=== PATIENT | male | born 1960 | race Two or more races ===

== ENCOUNTER 2019-11-06 14:00 | Inpatient (IN) | payer MEDICAID ==
[~2019-11-06] VITALS: Ht 193 cm; Wt 117.0 kg
[2019-11-06] MEDS ORDERED: SUCR1TAB28 PO (20:07)
[2019-11-06] MEDS ORDERED: LIB25 PO (20:07)
[2019-11-06] MEDS ORDERED: THIA100T80 PO (20:07)
[2019-11-06] MEDS ORDERED: FOLI-130 PO (20:07)
[2019-11-06] MEDS ORDERED: MULT1CAP32 PO (20:07)
[2019-11-06] MEDS ORDERED: PANT-31 PO (20:07)
[2019-11-07] VITALS (11 sets, daily range): BP systolic 110–151; BP diastolic 60–92
[2019-11-07] MEDS: LORazepam 2 MG TABLET PO PRN ×2 (05:12→10:01)
[2019-11-07] MEDS ORDERED: PNEUMOCOCCAL VACCINE POLYVALENT 0.5 ML VIAL [PPSV23] IM ONE (07:30)
[2019-11-07] MEDS ORDERED: PETROLATUM,WHITE 28 GM JELLY TP PRN (08:00)
[2019-11-07] MEDS ORDERED: DOCUSATE SODIUM 100 MG CAPSULE PO PRN (08:00)
[2019-11-07] MEDS ORDERED: MAG HYDROX/AL HYDROX/SIMETH ES 30 ML SUSPENSION UDCUP PO PRN (08:00)
[2019-11-07] MEDS ORDERED: ALBUTEROL SULFATE HFA 90 MCG/PUFF 8 GM INHALER IH PRN (08:00)
[2019-11-07] MEDS ORDERED: LOPERAMIDE HCL 2 MG CAPSULE PO PRN (08:00)
[2019-11-07] MEDS ORDERED: GuaiFENesin/D-METHORPHAN [SUGAR-FREE] 200-20MG/10 ML SYRUP UDCUP PO PRN (08:00)
[2019-11-07] MEDS ORDERED: MAGNESIUM HYDROXIDE SUSPENSION 30 ML UDCUP PO PRN (08:00)
[2019-11-07] MEDS ORDERED: ONDANSETRON HCL 4 MG TABLET PO PRN (08:00)
[2019-11-07] MEDS ORDERED: IBUPROFEN 400 MG TABLET PO PRN (08:00)
[2019-11-07] MEDS ORDERED: CloNIDine HCL 0.1 MG TABLET PO PRN (08:00)
[2019-11-07] MEDS ORDERED: ACETAMINOPHEN 325 MG TABLET PO PRN (08:00)
[2019-11-07] MEDS ORDERED: CYANOCOBALAMIN 1,000 MCG/ML VIAL IM ONE (14:15)
[2019-11-07] MEDS ORDERED: ChlordiazePOXIDE HCL 25 MG CAPSULE PO PRN (14:15)
[2019-11-07] MEDS: MULTIVITAMINS WITH MINERALS, THERAPEUTIC TABLET PO SCH (15:17)
[2019-11-07] MEDS: FOLIC ACID 1 MG TABLET PO SCH (15:17)
[2019-11-07] MEDS: ARIPiprazole 5 MG TABLET PO SCH (15:17)
[2019-11-07] MEDS: THIAMINE 100 MG TABLET PO SCH (16:30)
[2019-11-08] VITALS (7 sets, daily range): BP systolic 115–133; BP diastolic 68–92
[2019-11-08] MEDS: QUEtiapine FUMARATE 100 MG TABLET PO PRN (06:16)
[2019-11-08] MEDS ORDERED: ChlordiazePOXIDE HCL 25 MG CAPSULE PO PRN (07:00)
[2019-11-08] MEDS: ARIPiprazole 5 MG TABLET PO SCH (09:30)
[2019-11-08] MEDS: FOLIC ACID 1 MG TABLET PO SCH (09:31)
[2019-11-08] MEDS: ChlordiazePOXIDE HCL 25 MG CAPSULE PO SCH ×4 (09:31→20:06)
[2019-11-08] MEDS: MULTIVITAMINS WITH MINERALS, THERAPEUTIC TABLET PO SCH (09:31)
[2019-11-08] MEDS: THIAMINE 100 MG TABLET PO SCH ×2 (09:31→16:02)
[2019-11-08] MEDS: NICOTINE 14 MG/24 HOUR PATCH TD PRN (12:44)
[2019-11-08] MEDS: ZOLPIDEM TARTRATE 10 MG TABLET PO PRN (20:39)
[2019-11-09] MEDS: QUEtiapine FUMARATE 100 MG TABLET PO PRN ×2 (00:06→21:25)
[2019-11-09 06:56] VITALS: BP_SYST 131; BP_SYST 139; BP_DIAS 78; BP_DIAS 80
[2019-11-09 08:07] VITALS: BP 123/67
[2019-11-09] MEDS: FOLIC ACID 1 MG TABLET PO SCH (08:35)
[2019-11-09] MEDS: ChlordiazePOXIDE HCL 25 MG CAPSULE PO SCH ×4 (08:35→20:08)
[2019-11-09] MEDS: ARIPiprazole 5 MG TABLET PO SCH (08:35)
[2019-11-09] MEDS: THIAMINE 100 MG TABLET PO SCH ×2 (08:35→16:32)
[2019-11-09] MEDS: MULTIVITAMINS WITH MINERALS, THERAPEUTIC TABLET PO SCH (08:35)
[2019-11-09 09:32] VITALS: BP 123/67
[2019-11-09 16:00] VITALS: BP 149/103
[2019-11-09 18:00] VITALS: BP 130/95
[2019-11-10 00:03] VITALS: BP 132/76
[2019-11-10 05:31] VITALS: BP 133/76
[2019-11-10] MEDS ORDERED: ChlordiazePOXIDE HCL 10 MG CAPSULE PO PRN (07:00)
[2019-11-10] MEDS: MULTIVITAMINS WITH MINERALS, THERAPEUTIC TABLET PO SCH (08:12)
[2019-11-10] MEDS: ChlordiazePOXIDE HCL 10 MG CAPSULE PO SCH ×4 (08:12→20:05)
[2019-11-10] MEDS: ARIPiprazole 5 MG TABLET PO SCH (08:12)
[2019-11-10] MEDS: FOLIC ACID 1 MG TABLET PO SCH (08:12)
[2019-11-10] MEDS: THIAMINE 100 MG TABLET PO SCH ×2 (08:13→16:33)
[2019-11-10 08:53] VITALS: BP 140/88
[2019-11-10 08:54] VITALS: BP 140/88
[2019-11-10 08:58] LABS: CHOL/HDL RATIO 3.8 (4.2-7.3)
[2019-11-10 17:20] VITALS: BP_SYST 149; BP_SYST 156; BP_DIAS 87; BP_DIAS 88
[2019-11-10 21:28] VITALS: BP 149/88
[2019-11-10] MEDS: ZOLPIDEM TARTRATE 10 MG TABLET PO PRN (22:22)
[2019-11-11 00:27] VITALS: BP 146/84
[2019-11-11] MEDS ORDERED: ChlordiazePOXIDE HCL 10 MG CAPSULE PO PRN (07:00)
[2019-11-11 08:07] VITALS: BP 142/92
[2019-11-11] MEDS: ARIPiprazole 5 MG TABLET PO SCH (08:29)
[2019-11-11] MEDS: THIAMINE 100 MG TABLET PO SCH ×2 (08:29→16:01)
[2019-11-11] MEDS: FOLIC ACID 1 MG TABLET PO SCH (08:29)
[2019-11-11] MEDS: MULTIVITAMINS WITH MINERALS, THERAPEUTIC TABLET PO SCH (08:29)
[2019-11-11 08:46] VITALS: BP 142/92
[2019-11-11 16:40] VITALS: BP 140/85
[2019-11-11] MEDS: NICOTINE 14 MG/24 HOUR PATCH TD PRN (17:33)
[2019-11-11 17:38] VITALS: BP 140/85
[2019-11-11] MEDS: ZOLPIDEM TARTRATE 10 MG TABLET PO PRN (21:05)
[2019-11-12 00:22] VITALS: BP 131/78
[2019-11-12 04:23] VITALS: BP 140/82
[2019-11-12] MEDS: FOLIC ACID 1 MG TABLET PO SCH (08:23)
[2019-11-12] MEDS: MULTIVITAMINS WITH MINERALS, THERAPEUTIC TABLET PO SCH (08:23)
[2019-11-12] MEDS: THIAMINE 100 MG TABLET PO SCH ×2 (08:24→17:09)
[2019-11-12] MEDS: ARIPiprazole 5 MG TABLET PO SCH (08:24)
[2019-11-12 08:25] VITALS: BP 141/92
[2019-11-12 09:14] VITALS: BP 132/92
[2019-11-12 16:28] VITALS: BP 139/87
[2019-11-12 16:55] VITALS: BP 139/87
[2019-11-13 00:28] VITALS: BP 137/79
[2019-11-13 02:06] VITALS: BP 129/85
[2019-11-13 08:03] VITALS: BP 129/73
[2019-11-13] MEDS: THIAMINE 100 MG TABLET PO SCH (08:15)
[2019-11-13] MEDS: FOLIC ACID 1 MG TABLET PO SCH (08:15)
[2019-11-13] MEDS: ARIPiprazole 5 MG TABLET PO SCH (08:15)
[2019-11-13] MEDS: MULTIVITAMINS WITH MINERALS, THERAPEUTIC TABLET PO SCH (08:15)
[2019-11-13] MEDS ORDERED: ARIP5TAB8 PO (12:37)
== END 2019-11-13 14:50 | disposition home or self-care (01) | DRG 750 ==
LOC: B2S 11-07 02:44
PROVIDERS: ADMIT Psychiatry & Neurology Child & Adolescent Psychiatry
PROC: 3E0234Z Introduction of Serum, Toxoid and Vaccine into Muscle, Percutaneous Approach (ICD-10-PCS; principal; 2019-11-07)
DX: F25.1 Schizoaffective disorder, depressive type (principal); R45.851 Suicidal ideations; Y90.8 Blood alcohol level of 240 mg/100 ml or more; Z91.5 Personal history of self-harm; I10 Essential (primary) hypertension; F10.20 Alcohol dependence, uncomplicated; K21.9 Gastro-esophageal reflux disease without esophagitis; K59.00 Constipation, unspecified; F19.10 Other psychoactive substance abuse, uncomplicated
CPT/HCPCS: 87081; 90732; J3420; Q0162